=== PATIENT | female | born 1970 | race Two or more races ===

== ENCOUNTER 2017-01-23 07:00 | Observation (INO) | payer MEDICAID ==
[2017-01-23 07:36] LABS: HCG,QUALITATIVE URINE POSITIVE (NEGATIVE)
[2017-01-23 07:38] LABS: SQUAMOUS EPITHIAL 5 /hpf (0-5); URINE BACTERIA RARE (<OCC); URINE BILIRUBIN NEGATIVE (NEGATIVE); URINE BLOOD 2+ (NEGATIVE); URINE CLARITY Hazy (Clear); URINE COLOR Yellow (YELLOW); URINE GLUCOSE (UA) NORMAL (Normal); URINE LEUKOCYTE ESTERASE TRACE Leu/uL (Negative); URINE NITRATE NEGATIVE (NEGATIVE); URINE PROTEIN NEGATIVE (NEGATIVE); URINE UROBILINOGEN NORMAL mg/dL (0.2-1.0)
--- NOTE | 2017-01-23 07:57 | C.PDOC ---
History Of Present Illness 46 Y/O FEMALE, 5013, APPX 6 WEEKS , PRESENTS TO ED C/O NEW ONSET VAGINAL BLEEDING AND SUPRAPUBIC ABDOMINAL PAIN SINCE YESTERDAY. PT STATES SHE WAS SEEN BY OB YESTERDAY AND NOTES SHE HAS BEEN HAVING WEEKLY BLOODWORK. DESCRIBES VAGINAL BLEEDING "WATERY". DENIES FEVER, CHILLS, NAUSEA, VOMITING, DIARRHEA, URINARY SX. HISTORY OBTAINED VIA TRANSLATION BY ER REG STAFF OSWALDO. ULTRASOUND 01/15: IUP 6 WKS BETA 01/16: [id number] Time Seen by Provider: 01/23/17 07:27 Chief Complaint (Nursing): Female Genitourinary History Per: Patient, Contact Center Consultant History/Exam Limitations: language barrier Onset/Duration Of Symptoms: Days Current Symptoms Are (Timing): Still Present Quality Of Discomfort: Cramping, "Pain" Associated Symptoms: denies: Fever, Chills, Urinary Symptoms Recent travel outside of the [place]: No Abnormal Vaginal Bleeding: Yes : 5 Para: 3 Miscarriage: 1 Past Medical History Reviewed: Historical Data, Nursing Documentation, Vital Signs Vital Signs: Last Vital Signs Temp 98.5 F 01/23/17 07:06 Pulse 63 01/23/17 10:17 Resp 18 01/23/17 10:17 BP 102/65 01/23/17 10:17 Pulse Ox 99 01/23/17 11:55 - Medical History PMH: No Chronic Diseases Family History: States: Unknown Family Hx - Social History Hx Tobacco Use: No Hx Alcohol Use: No Hx Substance Use: No - Immunization History Hx Tetanus Toxoid Vaccination: No Hx Influenza Vaccination: No Hx Pneumococcal Vaccination: No Review Of Systems Except As Marked, All Systems Reviewed And Found Negative. Constitutional: Negative for: Fever Cardiovascular: Negative for: Chest Pain Respiratory: Negative for: Cough, Shortness of Breath, Wheezing Gastrointestinal: Positive for: Abdominal Pain. Negative for: Nausea, Vomiting Genitourinary: Positive for: Vaginal Bleeding Skin: Negative for: Rash Neurological: Negative for: Headache, Dizziness Physical Exam - Physical Exam Appears: Non-toxic, No Acute Distress Skin: Normal Color, Warm, Dry Head: Atraumatic, Normacephalic Oral Mucosa: Moist Chest: Symmetrical Cardiovascular: Rhythm Regular Respiratory: Normal Breath Sounds, No Rales, No Rhonchi, No Wheezing Gastrointestinal/Abdominal: Soft, Tenderness (SUPRAPUBIC), No Guarding, No Rebound Back: Normal Inspection Extremity: Normal ROM, Capillary Refill (< 2 SEC.) Neurological/Psych: Oriented x3, Normal Speech, Normal Cognition ED Course And Treatment - Laboratory Results Result Diagrams: 01/23/17 08:17 01/23/17 08:17 O2 Sat by Pulse Oximetry: 99 (RA) Pulse Ox Interpretation: Normal - CT Scan/US OB/TRANSABDOMINAL ULTRASOUND Other Rad Studies (CT/US): Radiology Report Reviewed CT/US Interpretation: Findings: The uterus is anteverted measuring approximately 9.4 x 5.1 x 6.7 cm. No myometrial masses are seen. Cervix is closed measuring 3.9 cm. There is a small intrauterine fluid collection which most likely represents a intrauterine gestational sac that does exhibit a peripheral decidual reaction. . This probably represents intrauterine gestational sac with measurements as follows: Gestational sac: MSD = 1.93 cm = 6 weeks 3 days. Yolk sac: ? Yolk sac 1.21 cm. pole: CRL = 0.34 = 6 weeks 0 days. Heart motion: None detected. Average ultrasound age: 6 weeks 2 days +/-0 weeks 3 days. JOSE JUAN based on average ultrasound age: 0208/28/2017. No free fluid seen in the cul de sac. Right ovary measures 2.1 x 1.4 x 1.8 cm and exhibits arterial flow. . There is a tiny echogenic focus that may represent calcification. Left ovary measures 2.55 x 2.2 x 2.6 cm and also exhibits arterial flow. Impression: There is a apparent intrauterine gestational sac which appears to contain a pole and questionable yolk sac with average ultrasound age of approximately 6 weeks 2 days +/-0 weeks 3 days. No cardiac activity documented with this exam. . Findings could represent developing early spontaneous and/or demise. Recommend followup serial serum beta HCG and serial pelvic ultrasound to assess for complete expulsion removal of products or development of viable intrauterine gestation. Ectopic would be less likely though not completely excluded. Note these findings were discussed with Dr. Live at approximately 11:14 a.m. with written down and read back verification. Progress - Re-Evaluation Re-evaluation Note: 01/23/17 08:13 LABS, ULTRASOUND, TYLENOL ORDERED. - Data Reviewed Data Reviewed: Lab, Diagnostic imaging, Old records ED OBSERVATION Discharge: Yes Date of observation admission: 01/23/17 Time of observation admission: 07:30 - Observation admission statement Patient is being placed in observation because:: PELVIC PAIN, VAG BLEED +PREG - Goals of Observation Goals of observation are:: +IUP ON PRIOR OUTPT SONO, RESULTS REVIEWED. NEG ACUTE ABD; RO DEMISE - Progress Note Progress Note: 01/23/17 11:54 D/W DR MARRERO. CLEARED FOR DC, FU OBGYN FOR REPEAT US/BETA 2 DAYS FEELS BETTER. VSS. ADVISED FU OBGYN. STATES WAS PENDING D&C TOMORROW 01/23/17 11:57 Disposition Counseled Patient/Family Regarding: Studies Performed, Diagnosis, Need For Followup - Disposition Disposition: HOME/ ROUTINE Disposition Time: 11:55 Condition: GOOD - Clinical Impression Clinical Impression: demise - Scribe Statement The provider has reviewed the documentation as recorded by the Zafar WHEELER Provider Attestation: All medical record entries made by the Zafar were at my direction and personally dictated by me. I have reviewed the chart and agree that the record accurately reflects my personal performance of the history, physical exam, medical decision making, and the department course for this patient. I have also personally directed, reviewed, and agree with the discharge instructions and disposition.
[2017-01-23 08:26] LABS: BASO # 0.1 K/uL (0.0-0.2); BASO % 1.1 % (0.0-2.0); EOS % 0.7 % (0.0-4.0); HEMOGLOBIN 11.2 g/dL (11.0-16.0); LYMPH # 1.1 K/uL (1.0-4.3); LYMPH % 22.3 % (20.0-40.0); MEAN CELL VOLUME 83.6 fL (81.0-99.0); MEAN CORPUSCULAR HEMOGLOBIN 26.8 pg (27.0-31.0); MEAN CORPUSCULAR HGB CONC 32.1 g/dL (33.0-37.0); MEAN PLATELET VOLUME 9.5 fL (7.2-11.7); MONO # 0.6 K/uL (0.0-0.8); MONO % 11.1 % (0.0-10.0); NEUT # 3.3 K/uL (1.8-7.0); NEUT % 64.8 % (50.0-75.0); RBC 4.17 Mil/uL (3.80-5.20); RED CELL DISTRIBUTION WIDTH 14.4 % (11.5-14.5); WHITE BLOOD COUNT 5.2 K/uL (4.8-10.8)
[2017-01-23 09:04] LABS: ALB/GLOB RATIO 1.1 (1.0-2.1); AST/SGOT 48 U/L (14-36); GFR AFRICAN-AMERICAN > 60; GFR NON-AFRICAN AMERICAN > 60
[2017-01-23 09:05] LABS: ALT/SGPT 16 U/L (9-52); BLOOD UREA NITROGEN 19 mg/dL (7-17); CALCIUM 8.7 mg/dl (8.6-10.4)
[2017-01-23 10:17] VITALS: RESP 18
--- NOTE | 2017-01-23 11:20 | US ---
OB ultrasound dated 01/23/2017. History: Pain. Rule out ectopic. Transvaginal sonographic evaluation of the pelvis performed. No prior. Findings: The uterus is anteverted measuring approximately 9.4 x 5.1 x 6.7 cm. No myometrial masses are seen. Cervix is closed measuring 3.9 cm. There is a small intrauterine fluid collection which most likely represents a intrauterine gestational sac that does exhibit a peripheral decidual reaction. . This probably represents intrauterine gestational sac with measurements as follows: Gestational sac: MSD = 1.93 cm = 6 weeks 3 days Yolk sac: ? Yolk sac 1.21 cm pole: CRL = 0.34 = 6 weeks 0 days Heart motion: None detected Average ultrasound age: 6 weeks 2 days +/-0 weeks 3 days JOSE JUAN based on average ultrasound age: 0208/28/2017 No free fluid seen in the cul de sac. Right ovary measures 2.1 x 1.4 x 1.8 cm and exhibits arterial flow. . There is a tiny echogenic focus that may represent calcification Left ovary measures 2.55 x 2.2 x 2.6 cm and also exhibits arterial flow Impression: There is a apparent intrauterine gestational sac which appears to contain a pole and questionable yolk sac with average ultrasound age of approximately 6 weeks 2 days +/-0 weeks 3 days. No cardiac activity documented with this exam. . Findings could represent developing early spontaneous and/or demise. Recommend followup serial serum beta HCG and serial pelvic ultrasound to assess for complete expulsion removal of products or development of viable intrauterine gestation. Ectopic would be less likely though not completely excluded. Note these findings were discussed with Dr. Live at approximately 11:14 a.m. with written down and read back verification.
[2017-01-23 12:01] VITALS: BP 112/72; PULSE 66; TEMP 97.3; O2SAT 98
== END 2017-01-23 11:55 | disposition home or self-care (01) ==
LOC: C.ER 07:00 → C.9OBSV 07:30
PROVIDERS: ADMIT Emergency Medicine; ATTEND Emergency Medicine
DX: O02.1 Missed abortion (principal); Z3A.01 Less than 8 weeks gestation of pregnancy
CPT/HCPCS: 36415; 76817; 80053; 81001; 84702; 84703; 85025; 86850; 86900; 99285; G0378; J1885

== ENCOUNTER 2017-01-24 06:27 | Emergency (ER) | payer MEDICAID ==
[2017-01-24] MEDS ORDERED: Sodium Chloride 0.9% 1,000 ML IV ONE (07:26)
--- NOTE | 2017-01-24 08:04 | C.PDOC ---
History Of Present Illness Patient is a 46 year old female who was seen in the ER yesterday for a complaint of vaginal bleeding. Patient is 6 weeks ; she had an US done yesterday. Patient presents now with increased vaginal bleeding and abdominal cramping. Denies vaginal discharge, dysuria, hematuria, fever, or chills. Time Seen by Provider: 01/24/17 07:10 Chief Complaint (Nursing): Female Genitourinary History Per: Patient History/Exam Limitations: no limitations Onset/Duration Of Symptoms: Hrs Current Symptoms Are (Timing): Still Present Quality Of Discomfort: Cramping Associated Symptoms: denies: Fever, Chills, Urinary Symptoms, Other (Vaginal discharge) Alleviating Factors: None Recent travel outside of the [place]: No Abnormal Vaginal Bleeding: Yes Past Medical History Reviewed: Historical Data, Nursing Documentation, Vital Signs Vital Signs: Last Vital Signs Temp 98.3 F 01/24/17 09:50 Pulse 72 01/24/17 09:50 Resp 16 01/24/17 09:50 BP 119/79 01/24/17 09:50 Pulse Ox 99 01/24/17 09:50 - Medical History PMH: Anemia Surgical History: No Surg Hx Family History: States: Unknown Family Hx - Social History Hx Tobacco Use: No Hx Alcohol Use: No Hx Substance Use: No - Immunization History Hx Tetanus Toxoid Vaccination: No Hx Influenza Vaccination: No Hx Pneumococcal Vaccination: No Review Of Systems Constitutional: Negative for: Fever, Chills Gastrointestinal: Positive for: Abdominal Pain Genitourinary: Positive for: Vaginal Bleeding. Negative for: Dysuria, Hematuria , Vaginal Discharge Physical Exam - Physical Exam Appears: Non-toxic, No Acute Distress Skin: Normal Color, Warm, Dry Head: Atraumatic, Normacephalic Oral Mucosa: Moist Chest: Symmetrical, No Tenderness Cardiovascular: Rhythm Regular, No Murmur Respiratory: Normal Breath Sounds, No Rales, No Rhonchi, No Wheezing Gastrointestinal/Abdominal: Soft, Tenderness (Suprapubic) Pelvic: Normal Bimanual Exam, No Cervical Motion Tenderness, No Cervix Open, No Adnexal Tenderness, Other (Large amounts of blood in the vagina) Neurological/Psych: Oriented x3, Normal Speech, Normal Cognition Gait: Steady ED Course And Treatment - Laboratory Results Result Diagrams: 01/24/17 07:49 Lab Interpretation: Normal Urine POC: Positive O2 Sat by Pulse Oximetry: 100 (Room air) Pulse Ox Interpretation: Normal Progress Note: Blood work and transvaginal US ordered. Tylenol and IV fluids administered. Reassessment Condition: Improved Disposition Counseled Patient/Family Regarding: Studies Performed, Diagnosis, Need For Followup, Rx Given - Disposition Referrals: [facility] [Outside] [facility] [Outside] Disposition: HOME/ ROUTINE Disposition Time: 10:00 Condition: GOOD Additional Instructions: Follow up with clinic for further evaluation Return to ED if any increase symptoms Prescriptions: Naproxen [Naprosyn] 1 tab PO BID PRN #25 tab PRN Reason: Pain Instructions: Spontaneous Miscarriage (ED) Print Language: CAMBODIAN - POA Present On Arrival: None - Clinical Impression Clinical Impression: Miscarriage - Scribe Statement The provider has reviewed the documentation as recorded by the Scribgómez Ca All medical record entries made by the Scribe were at my direction and personally dictated by me. I have reviewed the chart and agree that the record accurately reflects my personal performance of the history, physical exam, medical decision making, and the department course for this patient. I have also personally directed, reviewed, and agree with the discharge instructions and disposition.
[2017-01-24 08:10] LABS: BASO # 0.1 K/uL (0.0-0.2); BASO % 0.7 % (0.0-2.0); EOS # 0.1 K/uL (0.0-0.7); EOS % 0.7 % (0.0-4.0); HEMOGLOBIN 10.8 g/dL (11.0-16.0); LYMPH # 1.1 K/uL (1.0-4.3); LYMPH % 13.7 % (20.0-40.0); MEAN CELL VOLUME 83.9 fL (81.0-99.0); MEAN CORPUSCULAR HEMOGLOBIN 26.7 pg (27.0-31.0); MEAN CORPUSCULAR HGB CONC 31.8 g/dL (33.0-37.0); MEAN PLATELET VOLUME 9.4 fL (7.2-11.7); MONO # 0.8 K/uL (0.0-0.8); MONO % 9.2 % (0.0-10.0); NEUT # 6.2 K/uL (1.8-7.0); NEUT % 75.7 % (50.0-75.0); RBC 4.04 Mil/uL (3.80-5.20); RED CELL DISTRIBUTION WIDTH 14.6 % (11.5-14.5); WHITE BLOOD COUNT 8.2 K/uL (4.8-10.8)
--- NOTE | 2017-01-24 09:19 | US ---
HISTORY: bleeding COMPARISON: 01/23/2017. TECHNIQUE: Move on transvaginal pelvic ultrasound was performed. FINDINGS: UTERUS: Measures 10.9 x 5.5 x 6.6 cm. The previously demonstrated intrauterine gestational sac is no longer visualized. ENDOMETRIUM: Measures 9.0 mm in diameter. Unremarkable. CERVIX: No cervical abnormality identified. RIGHT OVARY: Measures 3.3 x 1.5 x 2.3 cm. No solid mass. Normal flow. LEFT OVARY: Measures 3.2 x 2.1 x 2.4 cm. No solid mass. Normal flow. FREE FLUID: No significant free fluid noted. OTHER FINDINGS: None. IMPRESSION: Findings are most compatible with interval complete . No evidence of intrauterine gestation
[2017-01-24 10:30] VITALS: BP 119/79; PULSE 72; RESP 16; TEMP 98.3
[2017-02-11 18:38] VITALS: O2SAT 100
== END 2017-01-24 10:00 | disposition home or self-care (01) ==
LOC: C.ER 06:27
DX: O03.9 Complete or unspecified spontaneous abortion without complication (principal)
CPT/HCPCS: 76830; 84702; 85025; 96360; 99284; J7040

== ENCOUNTER 2017-04-28 15:10 | Emergency (ER) | payer MEDICAID ==
[2017-04-28 15:28] VITALS: BP 118/78; PULSE 70; RESP 18; TEMP 97.7; O2SAT 100
[2017-04-28] MEDS ORDERED: Lidocaine 5% Patch TD STA (16:18)
--- NOTE | 2017-04-28 16:20 | C.PDOC ---
History Of Present Illness 46 y/o female presents to ED with complaints of localized left lower back pain since yesterday. Patient reports symptoms onset after hevaylifting and pain is worse with movement. Patient states pain is no relieved with Tylenol and denies trauma or any other complaints at this time. L LOWER BACK PAIN SINCE YEST. NO TRAUMA. ONSET AFTER LIFTING. WORSE W MOVEMENT, LOCALIZED. NO RELIEF W TYL EXAM MILD DIST BACK +L LOWER SPASM W LOCAL TEND. LIMITED ROM DUE OT PAIN. NO SPINAL TEND NEURO INTACT SKIN NEG Time Seen by Provider: 04/28/17 15:56 Chief Complaint (Nursing): Back Pain History Per: Patient History/Exam Limitations: no limitations Onset/Duration Of Symptoms: Days Current Symptoms Are (Timing): Still Present Quality Of Discomfort: "Pain" Past Medical History Reviewed: Historical Data, Nursing Documentation, Vital Signs Vital Signs: Last Vital Signs Temp 97.7 F 04/28/17 15:24 Pulse 70 04/28/17 15:24 Resp 18 04/28/17 15:24 BP 118/78 04/28/17 15:24 Pulse Ox 100 04/28/17 16:20 - Medical History PMH: Anemia Surgical History: No Surg Hx Family History: States: No Known Family Hx - Social History Hx Tobacco Use: No Hx Alcohol Use: No Hx Substance Use: No - Immunization History Hx Tetanus Toxoid Vaccination: No Hx Influenza Vaccination: No Hx Pneumococcal Vaccination: No Review Of Systems Except As Marked, All Systems Reviewed And Found Negative. Constitutional: Negative for: Fever, Chills Gastrointestinal: Negative for: Nausea, Vomiting, Abdominal Pain, Diarrhea Genitourinary: Negative for: Dysuria, Frequency, Hematuria Musculoskeletal: Positive for: Back Pain Skin: Negative for: Rash Neurological: Negative for: Weakness, Numbness Physical Exam - Physical Exam Appears: Non-toxic, Other (Mild distress) Skin: Normal Color, Warm, Dry, No Rash Head: Atraumatic, Normacephalic Eye(s): bilateral: Normal Inspection Oral Mucosa: Moist Neck: Normal ROM, Supple Chest: Symmetrical Back: Decreased ROM (Secondary to pain), Muscle Spasm (Left lower with local tenderness), No Paraspinal Tenderness Extremity: Normal ROM, Capillary Refill (<2 seconds) Neurological/Psych: Oriented x3, Normal Speech, Normal Motor, Normal Sensation ED Course And Treatment O2 Sat by Pulse Oximetry: 100 (RA) Pulse Ox Interpretation: Normal Disposition Counseled Patient/Family Regarding: Diagnosis, Need For Followup, Rx Given - Disposition Referrals: YOUR,PMD [Other] Disposition: HOME/ ROUTINE Disposition Time: 16:19 Condition: IMPROVED Prescriptions: Cyclobenzaprine [Flexeril] 10 mg PO TID #15 tab Lidocaine 5% [Lidoderm] 1 ea TD PRN PRN #10 patch PRN Reason: Pain, Moderate (4-7) Naproxen 500 mg PO BID #30 tab Instructions: Acute Low Back Pain (ED) Forms: [employer] (Syriac), Work Excuse Print Language: UZBEK - Clinical Impression Clinical Impression: Lumbar sprain - Scribe Statement The provider has reviewed the documentation as recorded by the Zafar Prasad All medical record entries made by the Zafar were at my direction and personally dictated by me. I have reviewed the chart and agree that the record accurately reflects my personal performance of the history, physical exam, medical decision making, and the department course for this patient. I have also personally directed, reviewed, and agree with the discharge instructions and disposition.
[2017-04-28] MEDS ORDERED: Lidocaine 5% Patch TD ONE (16:25)
== END 2017-04-28 16:35 | disposition home or self-care (01) ==
LOC: C.ER 15:10
DX: S33.5XXA Sprain of ligaments of lumbar spine, initial encounter (principal); X50.0XXA Overexertion from strenuous movement or load, initial encounter
CPT/HCPCS: 96372; 99283; J1885

== ENCOUNTER 2017-09-11 08:25 | Emergency (ER) | payer MEDICAID ==
[2017-09-11 08:32] VITALS: BMI 23.8
[2017-09-11 08:34] VITALS: BP 107/73; PULSE 81; RESP 17; TEMP 98.3; O2SAT 98
[2017-09-11] MEDS ORDERED: Naproxen 550 mg Tab PO STA (09:08)
--- NOTE | 2017-09-11 09:12 | C.PDOC ---
History Of Present Illness 46-year-old female, presents to the emergency department with complaints of cough, sore throat, runny nose, and body aches that started yesterday. Patient denies fevers, shortness of breath, back pain, neck pain, or any other associated symptoms. No other complaints at this time. Time Seen by Provider: 09/11/17 08:39 Chief Complaint (Nursing): Flu-like Symptoms History Per: Patient History/Exam Limitations: no limitations Onset/Duration Of Symptoms: Days Past Medical History Reviewed: Historical Data, Nursing Documentation, Vital Signs Vital Signs: Last Vital Signs Temp 98.3 F 09/11/17 08:33 Pulse 81 09/11/17 08:33 Resp 17 09/11/17 08:33 BP 107/73 09/11/17 08:33 Pulse Ox 98 09/11/17 09:12 - Medical History PMH: Anemia Family History: States: No Known Family Hx - Social History Hx Tobacco Use: No Hx Alcohol Use: No Hx Substance Use: No - Immunization History Hx Tetanus Toxoid Vaccination: No Hx Influenza Vaccination: No Hx Pneumococcal Vaccination: No Review Of Systems Except As Marked, All Systems Reviewed And Found Negative. Constitutional: Positive for: Malaise. Negative for: Fever ENT: Positive for: Throat Pain Cardiovascular: Negative for: Chest Pain, Palpitations Respiratory: Positive for: Cough. Negative for: Sputum Gastrointestinal: Negative for: Nausea, Vomiting Musculoskeletal: Negative for: Neck Pain, Back Pain Neurological: Negative for: Weakness, Numbness, Headache, Dizziness Physical Exam - Physical Exam Appears: Well, Non-toxic, No Acute Distress Skin: Warm, Dry, No Rash Head: Normacephalic Eye(s): bilateral: Normal Inspection, PERRL Nose: Normal Oral Mucosa: Moist Lips: Normal Appearing Neck: Normal ROM, Supple Chest: Symmetrical Cardiovascular: Rhythm Regular, No Murmur Respiratory: Normal Breath Sounds, No Accessory Muscle Use Extremity: Normal ROM Neurological/Psych: Oriented x3, Normal Speech ED Course And Treatment O2 Sat by Pulse Oximetry: 98 (RA) Pulse Ox Interpretation: Normal Progress Note: Patient treated with Tessalon and Naproxen. On re-evaluation, patient feels better. She is not in any acute distress. Symptoms have improved. She will be discharged for outpatient f.u with PMD. All questions answered. Disposition Counseled Patient/Family Regarding: Diagnosis, Need For Followup, Rx Given - Disposition Referrals: Marvin Gaxiola MD [Non-Staff] - Disposition: HOME/ ROUTINE Disposition Time: 09:10 Condition: STABLE Additional Instructions: FOLLOW UP WITH YOUR DOCTOR/CLINIC IN 1-2 DAYS DRINK PLENTY OF FLUIDS USE MEDICATIONS DIRECTED RETURN TO ER IF SYMPTOMS WORSEN SEGUIMIENTO CON MCCOY MDICO / CLNICA EN 1-2 PRICE BEBER MUCHO LQUIDO USE MEDICAMENTOS SEGN LO INDICADO VOLVER A ER SI LOS SNTOMAS EMPEORAN Prescriptions: Benzonatate [Tessalon Perles] 100 mg PO BID PRN #15 sgl PRN Reason: Cough Naproxen 375 mg PO BID PRN #20 tablet PRN Reason: pain Phenol/Glycerin [Chloraseptic Max Usk] 1 spray MM Q6 PRN #1 spray PRN Reason: THROAT PAIN Instructions: Viral Upper Respiratory Infection, Adult (DC) Forms: [employer] (Austrian) Print Language: MOROCCAN - Clinical Impression Clinical Impression: Viral disease, Upper respiratory infection - Scribe Statement The provider has reviewed the documentation as recorded by the Scribe (Kavitha Benjamin) All medical record entries made by the Scribe were at my direction and personally dictated by me. I have reviewed the chart and agree that the record accurately reflects my personal performance of the history, physical exam, medical decision making, and the department course for this patient. I have also personally directed, reviewed, and agree with the discharge instructions and disposition.
[2017-09-11] MEDS ORDERED: Naproxen 550 mg Tab PO ONE (09:19)
== END 2017-09-11 09:36 | disposition home or self-care (01) ==
LOC: C.ER 08:25
DX: J06.9 Acute upper respiratory infection, unspecified (principal)

== ENCOUNTER 2017-09-19 12:46 | Emergency (ER) | payer MEDICAID ==
[2017-09-19 12:46] VITALS: BMI 23.8
[2017-09-19 13:12] VITALS: BP 110/73; PULSE 78; RESP 20; TEMP 98; O2SAT 99
--- NOTE | 2017-09-19 13:36 | RAD ---
Chest x-ray two views History: Cough. Comparison: 11/17/2014 Findings: Right apical pleural thickening with some persistent mild scarring at the right lung apex. Bibasilar breast and nipple shadows. Mild patchy increased markings at the left lung base. Mild diffuse increased interstitial lung markings. Heart size within normal limits. Degenerative changes in the spine and shoulders. Impression: Right apical pleural thickening with some persistent mild scarring at the right lung apex. Bibasilar breast and nipple shadows. Mild patchy increased markings at the left lung base. Mild diffuse increased interstitial lung markings.
--- NOTE | 2017-09-19 14:14 | C.PDOC ---
History Of Present Illness 46 y/o female presents to the ED c/o pleuritic chest pain x several days. Patient has been taking Amoxicillin since 09/14. She was seen on 09/12, given Tessalon. Denies fever, shortness of breath, and dyspnea on exertion. CO PLEURITIC CP X SEV DAYS. ON AMOXICILLIN SINCE 09/14. SEEN ON 09/12, GIVEN TESSALON. NO FEVER. NO SOB/LAURENT. EXAM NARD LUNGS CTA B/L NO W/R/R SPEAKING FULL SENTENCES REMAINDER NEG Time Seen by Provider: 09/19/17 13:31 Chief Complaint (Nursing): Cough, Cold, Congestion History Per: Patient History/Exam Limitations: no limitations Onset/Duration Of Symptoms: Days Current Symptoms Are (Timing): Still Present Additional History Per: Patient Past Medical History Reviewed: Historical Data, Nursing Documentation, Vital Signs Vital Signs: Last Vital Signs Temp 98 F 09/19/17 13:09 Pulse 78 09/19/17 13:09 Resp 20 09/19/17 15:01 BP 110/73 09/19/17 13:09 Pulse Ox 99 09/19/17 14:14 - Medical History PMH: Anemia Denies: Chronic Kidney Disease Surgical History: No Surg Hx Family History: States: Unknown Family Hx - Social History Hx Tobacco Use: No Hx Alcohol Use: No Hx Substance Use: No - Immunization History Hx Tetanus Toxoid Vaccination: No Hx Influenza Vaccination: No Hx Pneumococcal Vaccination: No Review Of Systems Constitutional: Negative for: Fever, Chills Cardiovascular: Positive for: Chest Pain (pleuritic) Respiratory: Negative for: Shortness of Breath, SOB with Excertion Physical Exam - Physical Exam Appears: Non-toxic, No Acute Distress Skin: Normal Color, Warm, Dry Head: Atraumatic, Normacephalic Eye(s): bilateral: Normal Inspection Oral Mucosa: Moist Neck: Supple Chest: Symmetrical, No Deformity, No Tenderness Cardiovascular: Rhythm Regular, No Murmur Respiratory: Normal Breath Sounds, No Rales, No Rhonchi, No Wheezing, Other ( speaking in full sentences ) Extremity: Normal ROM, Capillary Refill (less than 2 seconds ) Neurological/Psych: Oriented x3, Normal Speech, Normal Cognition ED Course And Treatment O2 Sat by Pulse Oximetry: 99 (on RA) Pulse Ox Interpretation: Normal - Radiology CXR: Interpreted by Me CXR Interpretation: Yes: No Acute Disease Progress Note: CXR ordered. Disposition Counseled Patient/Family Regarding: Studies Performed, Diagnosis, Need For Followup - Disposition Referrals: YOUR,PMD [Other] Disposition: HOME/ ROUTINE Disposition Time: 14:14 Condition: GOOD Additional Instructions: TAKE MOTRIN/TYLENOL DIRECTED FOR PAIN Instructions: Pleuritic Chest Pain Forms: [employer] (Lithuanian) Print Language: ITALIAN - Clinical Impression Clinical Impression: Chest wall pain - Scribe Statement The provider has reviewed the documentation as recorded by the Scribe (Cady Brown) Provider Attestation: All medical record entries made by the Scribe were at my direction and personally dictated by me. I have reviewed the chart and agree that the record accurately reflects my personal performance of the history, physical exam, medical decision making, and the department course for this patient. I have also personally directed, reviewed, and agree with the discharge instructions and disposition.
== END 2017-09-19 15:01 | disposition home or self-care (01) ==
LOC: C.ER 12:46
DX: R07.89 Other chest pain (principal)

== ENCOUNTER 2017-12-18 13:12 | Emergency (ER) | payer MEDICAID ==
[2017-12-18 13:12] VITALS: BMI 23.8
--- NOTE | 2017-12-18 14:24 | C.PDOC ---
History Of Present Illness 47 year old female presents to the emergency department with a complaint of a dizziness that started yesterday while cooking but had resolved spontaneously but since has been experiencing a headache, neck pain, and upper back pain that has lasted until today, 12/18/2017. Pain is constant and worsens with movement. Reports taking Tylenol last night after noticing that pain was not leaving. Denies experiencing similar symptoms in the past, trauma, injury, fever, chills , or any further medical complaints. Time Seen by Provider: 12/18/17 13:48 Chief Complaint (Nursing): Headache History Per: Patient History/Exam Limitations: no limitations Onset/Duration Of Symptoms: Days Current Symptoms Are (Timing): Still Present Past Medical History Reviewed: Historical Data, Nursing Documentation, Vital Signs Vital Signs: Last Vital Signs Temp 98 F 12/18/17 13:26 Pulse 70 12/18/17 13:26 Resp 18 12/18/17 13:26 BP 112/75 12/18/17 13:26 Pulse Ox 100 12/18/17 14:56 - Medical History PMH: Anemia Denies: Chronic Kidney Disease Surgical History: No Surg Hx Family History: States: Unknown Family Hx - Social History Hx Tobacco Use: No Hx Alcohol Use: No Hx Substance Use: No - Immunization History Hx Tetanus Toxoid Vaccination: No Hx Influenza Vaccination: No Hx Pneumococcal Vaccination: No Review Of Systems Except As Marked, All Systems Reviewed And Found Negative. (As per HPI, otherwise negative) Constitutional: Negative for: Fever, Chills, Other (experiencing similar symptoms, trauma or injury) Musculoskeletal: Positive for: Neck Pain, Back Pain (upper) Neurological: Positive for: Headache, Dizziness Physical Exam - Physical Exam Appears: Well, Non-toxic, No Acute Distress Skin: Normal Color, Warm, Dry Head: Atraumatic, Normacephalic, No Tenderness Neck: Normal ROM, Other (Muscle spasm noted to the right sided along the edge of the sternocleidomastoid muscle) Chest: Symmetrical, No Deformity Cardiovascular: Rhythm Regular, No Murmur Respiratory: Normal Breath Sounds, No Decreased Breath Sounds, No Accessory Muscle Use, No Wheezing Gastrointestinal/Abdominal: Normal Exam, Soft, No Tenderness Back: No CVA Tenderness, Muscle Spasm (Tension to the back, under the scapula) Extremity: Normal ROM, No Pedal Edema Neurological/Psych: Oriented x3, Normal Speech, Normal Motor, Normal Sensation, Normal Reflexes Gait: Steady ED Course And Treatment O2 Sat by Pulse Oximetry: 100 (RA) Pulse Ox Interpretation: Normal Medical Decision Making Medical Decision Making: Time: 1425 Tylenol 325 mg PO Motrin 600 mg PO Reevaluation Disposition Counseled Patient/Family Regarding: Diagnosis, Need For Followup, Rx Given - Disposition Referrals: [facility] [Outside] Disposition: HOME/ ROUTINE Disposition Time: 15:20 Condition: STABLE Additional Instructions: Siga con prado doctor o la clinica. Prescriptions: diaZEpam [Valium] 5 mg PO TID #12 tab Ibuprofen [Motrin] 600 mg PO TID #15 tab Instructions: Muscle Spasms (DC) Forms: Gen Discharge Inst [place]an, [facility] ([place]an), Work Excuse - POA Present On Arrival: None - Clinical Impression Clinical Impression: Headache, Muscle spasm
[2017-12-18 16:17] VITALS: BP 109/62; PULSE 65; RESP 16; TEMP 98.6; O2SAT 99
== END 2017-12-18 16:16 | disposition home or self-care (01) ==
LOC: C.ER 13:12
DX: R51 Headache (principal); M62.838 Other muscle spasm